=== PATIENT | female | born 1995 | race Caucasian/White ===

== ENCOUNTER 2025-01-07 19:11 | Emergency (ER) | payer OTHER ==
[~2025-01-07] VITALS: Ht 157.5 cm; Wt 81.0 kg
[2025-01-07 19:19] VITALS: BP 127/70; PULSE 91; RESP 18; TEMP 98.4; O2SAT 100
[2025-01-07] MEDS: LIDOCAINE 1% 10 ML VIAL SQ ONE (20:37)
[2025-01-07] MEDS: CEPHALEXIN MONOHYDRATE 500 MG CAPSULE PO ONE (20:37)
[2025-01-07] MEDS: BACITRACIN 0.9 GM PACKET OINTMENT TP ONE (20:37)
[2025-01-07] MEDS: PERTUSS(ACELL),DIPH,TET/PF 0.5 ML SYRINGE [ADULT] IM. ONE (20:38)
[2025-01-07] MEDS ORDERED: CEPH-558 PO (21:52)
[2025-01-07] MEDS ORDERED: ACET-66 PO (21:52)
== END 2025-01-07 22:28 | disposition home or self-care (01) ==
LOC: EMS 19:11
DX: S61.216A Laceration without foreign body of right little finger without damage to nail, initial encounter (principal); Z96.698 Presence of other orthopedic joint implants; W26.0XXA Contact with knife, initial encounter; Y93.89 Activity, other specified; Y92.89 Other specified places as the place of occurrence of the external cause; Y99.8 Other external cause status
CPT/HCPCS: 99283; 73130; 90715; 90471; 12001; J3490